=== PATIENT | male | born 1995 | race Caucasian/White ===

== ENCOUNTER 2016-08-25 21:11 | Emergency (ER) | payer BC ==
[2016-08-26] MEDS ORDERED: CEPHALEXIN500 M1 PO (00:09)
[2016-08-26] MEDS ORDERED: DILAUDID2 M1 PO (00:09)
== END 2016-08-26 00:41 | disposition home or self-care (01) ==
LOC: ED 21:11
DX: T23.251A Burn of second degree of right palm, initial encounter (principal); T23.241A Burn of second degree of multiple right fingers (nail), including thumb, initial encounter; T23.171A Burn of first degree of right wrist, initial encounter; X10.2XXA Contact with fats and cooking oils, initial encounter; Y93.G3 Activity, cooking and baking; Y92.000 Kitchen of unspecified non-institutional (private) residence as the place of occurrence of the external cause
CPT/HCPCS: 90715; J1885; J3010

== ENCOUNTER 2016-08-26 11:11 | Emergency (ER) | payer BC ==
[~2016-08-26 11:11] MED LIST: CEPHALEXIN500 M1 PO; DILAUDID2 M1 PO
== END 2016-08-26 12:32 | disposition home or self-care (01) ==
LOC: ED 11:11
DX: T23.231D Burn of second degree of multiple right fingers (nail), not including thumb, subsequent encounter (principal); T23.251D Burn of second degree of right palm, subsequent encounter

== ENCOUNTER 2018-11-09 17:42 | Emergency (ER) | payer BC ==
[2018-11-09 23:20] VITALS: BP 141/94
== END 2018-11-09 23:20 | disposition home or self-care (01) ==
LOC: ED 17:42
DX: S61.222A Laceration with foreign body of right middle finger without damage to nail, initial encounter (principal); W25.XXXA Contact with sharp glass, initial encounter; W20.8XXA Other cause of strike by thrown, projected or falling object, initial encounter; Y92.009 Unspecified place in unspecified non-institutional (private) residence as the place of occurrence of the external cause

== ENCOUNTER → 2023-03-04 | Outpatient (CLI) | payer BC | LOC: RAD 10:55 | DX: T14.8XXA Other injury of unspecified body region, initial encounter (principal); M79.89 Other specified soft tissue disorders ==